=== PATIENT | male | born 1950 | race Two or more races ===

== ENCOUNTER 2019-01-04 22:45 | Emergency (ER) | payer MEDICARE ==
[~2019-01-04] VITALS: Ht 177.8 cm; Wt 68.0 kg
[2019-01-05] MEDS ORDERED: cloNIDine HCL 0.1 MG TAB PO ONE (01:00)
[2019-01-05] MEDS ORDERED: hydrALAZINE HCL 20 MG/ML VL IV ONE (02:00)
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
[2019-01-06 08:00] VITALS: BP 177/100
--- NOTE | 2019-01-06 10:18 | NUR ---
Follow up on pt and placement options this am. Pt stated he talked to his friend but that his friend could not pick him up. Discussed with pt that Homeless animal shelter worker would be by this morning and that we would provide a taxi voucher to transport him to detention after evaluation. Pt stated that he didn't want to go there and wanted to go to a motel but that he didn't have the list I'd given him yesterday. Upon providing him with the list, pt then inquired if [facility] was still available. I stated I would contact [facility]. [facility] stated she would take the pt if he had the finances to pay for stay at the time of admission (states residents will promise to pay when she takes them but they don't, so her policy is to have them pay upfront first). I asked pt if he was in agreeance with paying the $1400 and he stated yes. Contacted [facility] and she confirmed bed availability for today. Notified pt, who then stated that he couldn't go until this afternoon because that's when his check would be in the mail. I informed pt that he is discharged and that he has been provided with viable options that he is choosing to not take for various reasons of his own and he cannot continue to be housed in the ER for nonmedical reasons. Informed pt that if he contacts [facility] and has the money she will take him. Provided pt with [facility] phone number and as well as the Shelters phone number in case he decides to choose placement there. Provided [facility] with Client's phone number as well. Pt reviewing list of motels provided earlier. Provided taxi voucher to [facility], for pt to be transported to location of his choosing. Pt verbalized understanding and that I'd been of no help to him. Addendum: 01/06/19 at 1220 by CHRISTO KAUFMAN Pt has appropriate clothes for the weather, medical equipment, and was provided a meal this morning. Pt was to be evaluated by Homeless executive director sheltered workshop this am but declined evaluation stating he wanted to go to a motel, 15 minutes later he stated he wanted to go to [facility]'s board and care. Pt wants to stay here until his check comes in the mail. Informed pt that we are unable to house him until his check comes in the hospital since we are a medical facility. Provided pt with information to complete admission to room and board when he is ready.
== END 2019-01-06 13:34 | disposition home or self-care (01) ==
LOC: EDBD 22:45 → ER 22:52
DX: I10 Essential (primary) hypertension (principal); F17.210 Nicotine dependence, cigarettes, uncomplicated; Z59.0 Homelessness; Z86.73 Personal history of transient ischemic attack (TIA), and cerebral infarction without residual deficits
CPT/HCPCS: 70450; 96374; 99284; J0360

== ENCOUNTER 2019-01-06 22:56 | Emergency (ER) | payer MEDICARE ==
[~2019-01-06] VITALS: Ht 170.2 cm; Wt 68.0 kg
[2019-01-07 01:10] LABS: Basophils # (auto) 0.1 uL; Basophils % (auto) 0.6 % (0.0-2.0); Eosinophils # (auto) 0.2 uL; Eosinophils % (auto) 2.1 % (0.0-7.0); Hematocrit 46.1 % (41.0-53.0); Hemoglobin 15.4 g/dL (13.5-17.5); Lymphocytes # (auto) 1.1 uL; Lymphocytes % (auto) 12.8 % (10.0-50.0); Mean Corpuscular Hemoglobin 29.8 pg (28.0-32.0); Mean Corpuscular Hgb Conc. 33.5 g/dL (32.0-36.0); Mean Corpuscular Volume 89.1 fL (80.0-100.0); Monocytes # (auto) 0.7 uL; Monocytes % (auto) 8.4 % (0.0-12.0); Neutrophils # (auto) 6.7 uL; Neutrophils % (auto) 76.1 % (37.0-80.0); Nucleated Red Blood Cells % 0.1 %; Platelet Count (auto) 289 10^3/uL (140-450); Red Blood Cells 5.18 10^6/uL (4.5-5.90); Red Cell Distribution Width 14.7 % (11.8-14.3); White Blood Cell 8.8 10^3/uL (4.4-10.8)
[2019-01-07 01:23] LABS: INR 0.96 (0.9-1.15); Partial Thromboplastin Time 26.7 sec (23.78-33.04); Prothrombin Time 10.3 sec (9.27-12.13)
[2019-01-07 01:41] LABS: Chloride 106 mmol/L (98-107); Potassium 3.9 mmol/L (3.5-5.1); Sodium 140 mmol/L (136-145)
[2019-01-07 01:49] LABS: Alanine Aminotransferase 102 U/L (16-61); Albumin 3.3 g/dL (3.4-5.0); Alkaline Phosphatase 81 U/L (45-117); Anion Gap 8 (5-15); Aspartate Aminotransferase 90 U/L (15-37); BUN/Creatinine Ratio 21.4; Bilirubin, Total 0.4 mg/dL (0.2-1.0); Blood Urea Nitrogen 15 mg/dL (7-18); Calcium 8.7 mg/dL (8.5-10.1); Carbon Dioxide 26 mmol/L (21-32); GFR African American 145 mL/min; GFR Non-African American 120 mL/min; Glucose 98 mg/dL (74-106); Magnesium 2.2 mg/dL (1.6-2.6); Total Protein 6.7 g/dL (6.4-8.2)
[2019-01-07] MEDS ORDERED: cloNIDine HCL 0.1 MG TAB PO ONE (06:30)
[2019-01-07 07:24] VITALS: BP 150/85
== END 2019-01-07 11:32 | disposition home or self-care (01) ==
LOC: EDBD 22:56 → ER 23:01
DX: R07.89 Other chest pain (principal); F17.210 Nicotine dependence, cigarettes, uncomplicated; Z00.8 Encounter for other general examination; Z86.73 Personal history of transient ischemic attack (TIA), and cerebral infarction without residual deficits
CPT/HCPCS: 36415; 71045; 80053; 83735; 83880; 84443; 84484; 85025; 85610; 85730; 93005; 94761